=== PATIENT | female | born 1935 | race Caucasian/White ===

== ENCOUNTER 2017-07-11 12:58 | Inpatient (IN) | payer MEDICARE, BC, OTHER ==
[2017-07-11 13:53] LABS: ALT (SGPT) 18 U/L (8-55); AST (SGOT) 22 U/L (5-34); Alkaline Phosphatase 106 U/L (40-150); Anion Gap 18 mmol/L (10-20); BUN (Urea Nitrogen) 23 mg/dL (9.8-20.1); Band 3 % (5-11); Bilirubin, Total 0.6 mg/dL (0.2-1.2); CK (CPK) 32 U/L (29-168); Calc. Creatinine Clearance 0 mL/min (70-130); Calcium 9.1 mg/dL (7.8-10.44); Carbon Dioxide 21 mmol/L (23-31); Chloride 102 mmol/L (98-107); Estimated GFR-MDRD 39; Globulin 4.1 g/dL (2.4-3.5); Hematocrit 37.2 % (36.0-47.0); Mean Platelet Volume 6.4 fL (7.4-10.4); Neutrophil 87 % (42-75); Protein, Total 7.4 g/dL (6.0-8.3); Red Blood Cell (RBC) Count 4.24 mill/uL (4.20-5.40); White Blood Cell (WBC) Count 18.8 thou/uL (4.8-10.8)
[2017-07-11 13:56] LABS: Troponin I Less than 0.010 ng/mL (< 0.028)
--- NOTE | 2017-07-11 14:38 | RAD ---
PORTABLE CHEST: DATE: 07/11/17. PROVIDED CLINICAL HISTORY: Syncope. FINDINGS: Comparison is made with the study dated 06/05/17. Cardiac and mediastinal silhouette is unchanged in appearance. Median sternotomy changes and left subclavian cardiac pacing device are redemonstrated . Left-sided pleural effusion appears stable to slightly more conspicuous as compared with the prio r study. Interval improvement in right basilar pleural parenchymal opacity. No evidence for pneumo thorax. IMPRESSION: Bibasilar pleural parenchymal opacities, appearing probably worsened on the left and improved on the right. POS: OFF
[2017-07-11] MEDS ORDERED: ISOVUE-370 76%-LOCM 1 ML ONE (15:14)
--- NOTE | 2017-07-11 15:28 | CT ---
ABDOMEN CT WITHOUT CONTRAST PELVIC CT WITHOUT CONTRAST: Date: 07/11/17 HISTORY: Dizziness. Weakness. Mid abdominal pain. Shortness of breath. COMPARISON: None TECHNIQUE: Abdomen and pelvic CT performed without contrast. Coronal reformatted images are submitted for inter pretation. FINDINGS: Small to moderate bilateral pleural effusions. Heart size is normal limits. There is moderate perica rdial fluid with a shaggy, irregular border of the pericardium. Correlate for pericarditis. Coronary artery calcifications are identified. Limited evaluation of the solid organs due to lack of IV contrast. Grossly unremarkable liver, splee n, pancreas, and adrenal glands. Surgically absent gallbladder. No mesenteric mass, lymphadenopathy, free air, or free fluid. Bilaterally, no hydronephrosis, nephrolithiasis, or perinephric fat stranding. Bilateral ureters hav e a normal caliber. No hydroureter, periureteral fat stranding, or ureterolithiasis. Visualized alimentary canal is unremarkable. Multiple normal caliber small bowel loops. Ileocecal ju nction is normal. Normal caliber appendix. Scattered fecal material in a nondistended, nondilated co carmel[place]. Extensive diverticulosis, without evidence of diverticulitis. PELVIC CT: No mass, lymphadenopathy, free air, or significant free fluid. Urinary bladder is unremarkable. Uter us is unremarkable, with the exception of a calcified lesion likely representing a uterine leiomyoma at the level of the fundus measuring 1.8 cm. Hypodensities in the sacrum are presumed to be due to Tarlov cysts. IMPRESSION: 1. Bilateral pleural effusions. 2. Pericardial fluid with an irregular appearing pericardium. Correlate for pericarditis. 3. Diverticulosis, without evidence of diverticulitis. 4. No evidence of bowel obstruction. POS: [facility]
[2017-07-11 16:49] LABS: Bilirubin Negative (Negative); Blood, Urine Trace (Negative); Glucose, Urine (Dipstick) Negative (Negative); Ketone, Urine Trace mg/dL (Negative); Nitrite Negative (Negative); Protein, Urine (Dipstick) 30 mg/dL (Neg-Trace); Urobilinogen 0.2 mg/dL (0.2-1.0)
[2017-07-11 16:55] LABS: Lactic Acid - Sepsis 2.6 mmol/L (0.5-2.2)
[2017-07-11 17:12] LABS: Bacteria/HPF 2+ HPF (None Seen); RBC/HPF 0-3 HPF (0-3)
[2017-07-11] MEDS ORDERED: Ondansetron HCl/PF 4 MG/2 ML Vial ONE (17:16)
[2017-07-11] MEDS ORDERED: Acetaminophen 325 MG TAB PO PRN ×2 (19:11→22:03)
[2017-07-11] MEDS ORDERED: Ondansetron ODT 4 MG TAB SL PRN (19:11)
[2017-07-11] MEDS ORDERED: Ondansetron HCl/PF 4 MG/2 ML Vial IVP PRN (19:11)
[2017-07-11] MEDS ORDERED: Dextrose 5 %-0.45 % NaCl 1,000 ML IV SCH (19:15)
[2017-07-11 21:43] VITALS: BMI 17.4
[2017-07-11] MEDS ORDERED: Piperacillin/Tazobactam 3.375 GM in Sodium Chloride 0.9% 100 ML IVPB SCH (23:59)
[2017-07-12] MEDS: Piperacillin/Tazobactam 2.25 GM in Sodium Chloride 0.9% 100 ML IVPB SCH ×4 (00:27→19:15)
--- NOTE | 2017-07-12 00:28 | HP ---
DATE OF ADMISSION: 07/11/2017 CHIEF COMPLAINT: Dizziness and weakness. HISTORY OF PRESENT ILLNESS: Mr. Roper is an 81-year-old female, who is difficult to get a history from. She seems to be very forgetful. Per the chart, she was sent over by her primary care physician, who is Dr. Taylor Escudero for dizzines s, weakness, and shortness of breath. The patient was recently admitted here from 05/31/2017-06/11/2017 for fall, syncope, and symptomatic bradycardia. 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 She underwent a sternotomy incision and open heart surgery f or repair and subsequently, was discharged to rehab on 06/11/2017. The patient states she went to rehab, was there for a little while, but has been home for \\\\"some ti me.\\\\" She is unable to tell me how long she has been home. She has continued to have progressive weakness and feels dizzy when she first gets up in the morning that she describes sensation that she is going to pass out. She denies any fevers or chills, no ch est pain or shortness of breath. No nausea or vomiting. Her sternotomy incision has been without d rainage and her postop pain is improved. On arrival here, she was noted to be hypotensive, tachycardic, elevated white blood cell count with a 3% bandemia and a slight left shift, and a lactic acid of over 2. She was subsequently admitted f or further workup and treatment. She did receive Zosyn and a 1 liter normal saline in the ER, which was not quite at 30 mL per kilo. Since arrival on the floor and prior to admission, she received another 500 mL, which did give her r ight at 30 mL per kilo, is continuing on IV fluids at present 200 mL per hour. She denies any curre nt complaints or any further problems. PAST MEDICAL HISTORY: 1. Hypothyroidism. 2. Hyperlipidemia. 3. GERD. 4. History of intracranial hemorrhage. 5. CKD stage 2. 6. Symptomatic bradycardia. 7. Status post dual-chamber pacemaker placement. 8. Recent atrial perforation with repair. PAST SURGICAL HISTORY: 1. Right knee surgery. 2. Colonoscopy. 3. Left breast biopsy. 4. Cholecystectomy. 5. Sternotomy with right atrial repair on 06/2017. HOME MEDICATIONS: 1. Crestor 5 mg p.o. at bedtime. 2. Levothyroxine 50 mcg daily. 3. Docusate 100 mg b.i.d. 4. Tylenol 650 mg p.r.n. pain. ALLERGIES: NKDA. FAMILY HISTORY: Negative for clotting or bleeding disorder, no immune dysfunction. SOCIAL HISTORY: Negative for habits x3. She is . States she lives alone at home. REVIEW OF SYSTEMS: A 10-point review of systems was performed and negative for all other systems ex cept as stated per HPI. I do question stability given her forgetfulness. PHYSICAL EXAMINATION: VITAL SIGNS: Temperature 97.3, pulse 95, blood pressure 88/64 on transfer from the ER, she is curre ntly 103/65 up on the floor. Her pulse is still 95, respiratory rate 16, satting 94% on 4 liters. GENERAL: She is awake. She is alert. She is oriented x3. She is a thin, frail-looking elderly wh ite female, appears to be in no distress. HEENT: Normocephalic, atraumatic. Pupils equal, round, reactive to light bilaterally, mucous membr anes are moist without visible lesions or thrush. NECK: Supple. Showed no lymphadenopathy, no JVD, no thyromegaly. She has good range of motion. N ormal carotid upstrokes. There are no bruits. LUNGS: Clear without wheezes, rales, or rhonchi. She has good air movement and symmetrical chest e xcursion. CARDIOVASCULAR: She has normal S1 and S2. They are distant. She has no audible rub. I cannot tc reciate any murmurs. Sternotomy incision is well healed. There is no erythema, no fluctuance. A p acemaker incision to the left chest is well healed as well. There is no tenderness and no fluid in the pocket. ABDOMEN: Soft, is nontender, nondistended, and scaphoid. She has normoactive bowel sounds present in all 4 quadrants. There is no rebound, rigidity, or guarding. EXTREMITIES: Show no cyanosis, no clubbing, no edema. She has 1+ peripheral pulses in both the ignacio salis pedis and posterior tibial pulses arteries. She has normal capillary refill. SKIN: Warm, moist, and well perfused. She has no rashes or lesions otherwise. NEUROLOGIC: Cranial nerves II through XII are grossly intact without any focal neurologic deficits. MUSCULOSKELETAL: Normal to inspection. She has no inflamed joints. No palpable joint effusions. LABORATORY DATA: Her baseline creatinine is somewhere around 0.8, she is currently at 1.31. Liver functions are fairly normal. A white blood cell count 18.8 with a left shift, 87% granulocyte s, 3% bands, hemoglobin 12.7, hematocrit 37.2, platelet count 434,000. RADIOGRAPHIC STUDIES: A CT scan of the abdomen and pelvis showed a pericardial fluid, abnormal appe aring pericardium, diverticulosis without diverticulitis, and moderate bilateral pleural effusions. ASSESSMENT AND PLAN: 1. Severe sepsis. I do not believe she has septic shock. After getting 1.5 liters of fluid which is 30 mL per kilo, her blood pressure did appear to be more normal. We will get orthostatics on her tonight and in the morning. We will continue fluids at 150 mL per hour overnight. She does have e levated white count with left shift, lactic acid 2.6 on presentation down to 1.8 prior to transfer, tachycardia at 95 and hypotension. Given her recent procedure, she is certainly at risk for hospita l-acquired infection. I will continue to cover with antibiotic. She did get Zosyn in the emergency room. We will continue her on vancomycin and Zosyn as we have no clear source. A CT scan did demo nstrate a pericardial fluid and moderate bilateral pleural effusions. There is no evidence of pneum onia. We will repeat a CT scan of the chest. Her D-dimer was elevated at over 4, but given her rec ent surgery that is not surprising at all. She has no other signs or symptoms of pulmonary embolus at this time, so we will continue her on deep venous thrombosis prophylaxis. We will follow up on t he findings of her CT scan of the chest. 2. History of hypothyroidism. We will continue replacement. 3. Hyperlipidemia, on Crestor. 4. Gastroesophageal reflux disease. We will continue her on Pepcid b.i.d. here. 5. Chronic kidney disease, stage 2. 6. Acute kidney injury. We will repeat labs in the morning.
[2017-07-12] MEDS: Sodium Chloride 0.9% 1,000 ML IV SCH ×4 (00:31→13:27)
[2017-07-12] MEDS ORDERED: Levothyroxine Sodium 50 MCG TAB PO SCH (06:00)
[2017-07-12] MEDS ORDERED: Diabetic Tussin 200 MG/10 ML UDCUP PO PRN (07:19)
[2017-07-12] MEDS ORDERED: Zolpidem Tartrate 5 MG TAB PO PRN (07:19)
[2017-07-12] MEDS ORDERED: Benzonatate 100 MG CAP PO PRN (07:19)
[2017-07-12] MEDS ORDERED: Loperamide HCl 2 MG CAP PO PRN (07:19)
[2017-07-12] MEDS ORDERED: Chloraseptic Spray 180 ml Bottle PO PRN (07:19)
[2017-07-12] MEDS ORDERED: Ondansetron HCl/PF 4 MG/2 ML Vial IVP PRN (07:19)
[2017-07-12] MEDS ORDERED: Milk Of Magnesia 30 ML UDCUP PO PRN (07:19)
[2017-07-12] MEDS ORDERED: Docusate 100 MG CAP PO PRN (07:19)
[2017-07-12] MEDS ORDERED: Loratadine 10 MG TAB PO PRN (07:19)
[2017-07-12] MEDS ORDERED: Sodium Chloride 0.65% Nasal 44 ML BOT EA NARE PRN (07:19)
[2017-07-12] MEDS ORDERED: Mag-Al 1200 mg/1200 mg/30 ML UDCUP PO PRN (07:19)
[2017-07-12] MEDS ORDERED: Artificial Tears 18 DROP/0.9 ML EA EYE PRN (07:19)
[2017-07-12] MEDS ORDERED: Eucerin (Mineral Oil/Petrolatum,White) 30 gm Jar TOP PRN (07:19)
[2017-07-12] MEDS ORDERED: Ondansetron ODT 4 MG TAB PO PRN (07:19)
[2017-07-12] MEDS ORDERED: HYDROcodone/Acetaminophen 5/325 mg Tablet PO PRN (07:19)
[2017-07-12] MEDS: Levothyroxine Sodium 50 MCG TAB PO SCH (07:54)
[2017-07-12] MEDS: Famotidine 20 MG TAB PO SCH ×2 (07:54→21:12)
--- NOTE | 2017-07-12 08:09 | CT ---
PRELIMINARY REPORT/[facility]/EMERGENCY AFTER HOURS PROCEDURE: EXAM: CT Angiography Chest With Intravenous Contrast CLINICAL HISTORY: 81 years old, female; Elevated d-dimer 4.32; C/O cough, denies chest pain or SOB. recent ra perforat ion and repair; Pericardial fluid. denies chest pain or SOB TECHNIQUE: Axial computed tomographic angiography images of the chest with intravenous contrast using pulmonary embolism protocol. Coronal reformatted images were created and reviewed. Oblique reformatted images were created and reviewed. COMPARISON: No relevant prior studies available. FINDINGS: Pulmonary arteries: No evidence of pulmonary embolism. Aorta: No acute findings. No thoracic aortic aneurysm. Lungs: Near-total consolidation / atelectasis of the left lower lobe. A few small patches of infiltr ate within the superior right upper lobe. Pleural space: Small right pleural fluid collection. Moderate left pleural fluid collection. No pneu mothorax. Heart: Small pericardial effusion. Coronary artery calcification. No evidence of RV dysfunction. Bones/joints: Prior median sternotomy. No acute fracture. No dislocation. Soft tissues: Unremarkable. Lymph nodes: Unremarkable. No enlarged lymph nodes. Tubes, lines and devices: Tip of unipolar pacemaker lead within the right ventricle. Other findings: Evidence of old granulomatous disease. IMPRESSION: 1. No evidence of pulmonary embolism. 2. Small pericardial effusion. 3. Small right pleural fluid collection. Moderate left pleural fluid collection. 4. Near-total consolidation / atelectasis of the left lower lobe. 5. A few small patches of infiltrate within the superior right upper lobe. Thank you for allowing us to participate in the care of your patient. Dictated and Authenticated by: Cisco Valerio MD 07/12/2017 12:42 AM Central Time ([place] \T\ [place]) FINAL REPORT CONTRAST ENHANCED CTA CHEST: Date: 07/11/17 HISTORY: 81-year-old female with history of elevated D-Dimer complaining of cough. FINDINGS: Contrast enhanced CTA of the chest is performed. 2D and 3D reconstructed images performed on an [employer] 3D workstation. Images demonstrate sternotomy wires seen. Intracardiac pacing device seen. Bilateral pleural effusio ns seen. Pericardial effusion is seen. No evidence of filling defects seen in the pulmonary arteries to suggest pulmonary emboli. IMPRESSION: No evidence of pulmonary emboli seen. I agree with the preliminary report given by Ad. POS: [facility]
[2017-07-12 08:50] LABS: Anion Gap 11 mmol/L (10-20); BUN (Urea Nitrogen) 15 mg/dL (9.8-20.1); Calc. Creatinine Clearance 42 mL/min (70-130); Calcium 8.3 mg/dL (7.8-10.44); Carbon Dioxide 23 mmol/L (23-31); Chloride 108 mmol/L (98-107); Estimated GFR-MDRD 66
[2017-07-12] MEDS ORDERED: Docusate 100 MG CAP PO SCH (09:00)
[2017-07-12] MEDS ORDERED: FLU VACC TS2017-18 (>65YR) 0.5 ML SYRINGE IM ONE (09:00)
[2017-07-12 09:33] LABS: #Eosinphils 0.1 thou/uL (0.0-0.7); #Monocytes 0.8 thou/uL (0.11-0.59); #Neutrophils 11.3 thou/uL (1.40-6.50); %Basophils 0.2 % (0.0-1.0); %Eosinophils 0.7 % (0.0-10.0); %Lymphocytes 7.7 % (21.0-51.0); %Monocytes 5.7 % (0.0-10.0); Hematocrit 36.6 % (36.0-47.0); Mean Platelet Volume 7.1 fL (7.4-10.4); Red Blood Cell (RBC) Count 3.85 mill/uL (4.20-5.40); White Blood Cell (WBC) Count 13.2 thou/uL (4.8-10.8)
--- NOTE | 2017-07-12 13:03 | PDOC.PN ---
- Subjective Encounter Start Date: 07/12/17 Encounter Start Time: 07:40 -: old records requested/rev Patient seen and examined. No new complaints. No overnight events - Objective MAR Reviewed: Yes Vital Signs & Weight: Vital Signs (12 hours) Temp Pulse Resp BP Pulse Ox 07/12/17 11:23 98.8 F 96 18 117/79 98 07/12/17 08:00 97.6 F 96 16 95/64 98 07/12/17 05:52 97.4 F L 97 16 100/66 94 L Weight Admit Weight 108 lb 0.48 oz Weight 108 lb 0.48 oz I&O: 07/11/17 07/12/17 07/13/17 06:59 06:59 06:59 Intake Total 180 Balance 180 Result Diagrams: 07/12/17 09:11 07/12/17 08:19 Radiology Reviewed by me: Yes (CT abdomen, CTA chest) Phys Exam - Physical Examination Constitutional: NAD HEENT: PERRLA, moist MMs, sclera anicteric Neck: no JVD, supple Respiratory: no wheezing, no rales, no rhonchi Cardiovascular: RRR, no significant murmur, no rub Gastrointestinal: soft, non-tender, no distention, positive bowel sounds Musculoskeletal: no edema, pulses present Neurological: non-focal, normal sensation, moves all 4 limbs Lymphatic: no nodes Psychiatric: normal affect, A&O x 3 Skin: no rash, normal turgor Dx/Plan (1) Community acquired bacterial pneumonia Code(s): J15.9 - UNSPECIFIED BACTERIAL PNEUMONIA Status: Acute (2) Acute kidney failure Status: Acute (3) Bilateral pleural effusion Code(s): J90 - PLEURAL EFFUSION, NOT ELSEWHERE CLASSIFIED Status: Acute (4) Dehydration Code(s): E86.0 - DEHYDRATION Status: Acute (5) Lactic acidosis Code(s): E87.2 - ACIDOSIS Status: Acute (6) Pericardial effusion Code(s): I31.3 - PERICARDIAL EFFUSION (NONINFLAMMATORY) Status: Acute Comment: s/p pericardial window (7) Protein-calorie malnutrition, moderate Code(s): E44.0 - MODERATE PROTEIN-CALORIE MALNUTRITION Status: Acute (8) Sepsis with acute organ dysfunction Code(s): A41.9 - SEPSIS, UNSPECIFIED ORGANISM; R65.20 - SEVERE SEPSIS WITHOUT SEPTIC SHOCK Status: Acute (9) Diverticulosis of colon Code(s): K57.30 - DVRTCLOS OF LG INT W/O PERFORATION OR ABSCESS W/O BLEEDING Status: Chronic (10) GERD (gastroesophageal reflux disease) Code(s): K21.9 - GASTRO-ESOPHAGEAL REFLUX DISEASE WITHOUT ESOPHAGITIS Status: Chronic (11) Hypothyroidism Code(s): E03.9 - HYPOTHYROIDISM, UNSPECIFIED Status: Chronic - Plan cont current plan of care, continue antibiotics * continue vancomycin and zosyn * follow on culture * medication reviewed as below * symptomatic treatment * start PT * nutritional support. * continue IVF * repeat labs tomorrow Review of Systems - Review of Systems Constitutional: Weakness. negative: Fever, Chills, Sweats, Malaise, Other ENT: negative: Ear Pain, Ear Discharge, Nose Pain, Nose Discharge, Nose Congestion, Mouth Pain, Mouth Swelling, Throat Pain, Throat Swelling, Other Respiratory: Cough, Shortness of Breath. negative: Dry, Hemoptysis, SOB with Excertion, Pleuritic Pain, Sputum, Wheezing Cardiovascular: negative: Chest Pain, Palpitations, Orthopnea, Paroxysmal Noc. Dyspnea, Edema, Light Headedness, Other Gastrointestinal: negative: Nausea, Vomiting, Abdominal Pain, Diarrhea, Constipation, Melena, Hematochezia, Other Genitourinary: negative: Dysuria, Frequency, Incontinence, Hematuria, Retention , Other Musculoskeletal: negative: Neck Pain, Shoulder Pain, Arm Pain, Back Pain, Hand Pain, Leg Pain, Foot Pain, Other - Medications/Allergies Allergies/Adverse Reactions: Allergies Allergy/AdvReac Type Severity Reaction Status Date / Time No Known Drug Allergies Allergy Verified 06/01/17 01:47 Medications: Current Medications Acetaminophen (Tylenol) 650 mg PO Q4H PRN PRN Reason: Headache/Fever or Mild Pain Hydrocodone Bitart/Acetaminophen ([place] 5/325) 1 tab PO Q4H PRN PRN Reason: Moderate Pain (4-6) Al Hydroxide/Mg Hydroxide (Maalox) 15 ml PO Q4H PRN PRN Reason: Heartburn or Indigestion Artificial Tears (Tears Naturale) 0 drop EA EYE PRN PRN PRN Reason: Dry Eyes Benzonatate (Tessalon) 100 mg PO Q4H PRN PRN Reason: Cough Docusate Sodium (Colace) 100 mg PO BIDPRN PRN PRN Reason: Constipation Famotidine (Pepcid) 20 mg PO BID [facility] Last Admin: 07/12/17 07:54 Dose: 20 mg Guaifenesin (Robitussin Sf) 200 mg PO Q4H PRN PRN Reason: Cough Hydralazine HCl (Apresoline) 10 mg SLOW IVP Q4H PRN PRN Reason: Systolic BP > 180 Vancomycin HCl 750 mg/ Sodium (Chloride) 250 mls @ 250 mls/hr IVPB Q24HR [facility] Piperacillin Sod/Tazobactam (Sod 2.25 gm/ Sodium Chloride) 100 mls @ 200 mls/ hr IVPB Q6HR [facility] Last Admin: 07/12/17 11:26 Dose: 100 mls Sodium Chloride (Normal Saline 0.9%) 1,000 mls @ 75 mls/hr IV .[id number] [facility] Last Admin: 07/12/17 07:54 Dose: Not Given Levothyroxine Sodium (Synthroid) 50 mcg PO DAILY [facility] Last Admin: 07/12/17 07:54 Dose: 50 mcg Loperamide HCl (Imodium) 2 mg PO PRN PRN PRN Reason: Diarrhea/Loose Stools Loratadine (Claritin) 10 mg PO DAILYPRN PRN PRN Reason: Sinus Symptoms Magnesium Hydroxide (Milk Of Magnesium) 30 ml PO DAILYPRN PRN PRN Reason: Constipation Mineral Oil/White Petrolatum (Eucerin Cream) 0 gm TOP BIDPRN PRN PRN Reason: Dry Skin Miscellaneous Medication (Pharmacy To Dose) 1 each IVPB PRN PRN PRN Reason: Pharmacy to dose Ondansetron HCl (Zofran Odt) 4 mg PO Q6H PRN PRN Reason: Nausea/Vomiting Ondansetron HCl (Zofran) 4 mg IVP Q6H PRN PRN Reason: Nausea/Vomiting Phenol (Chloraseptic [place] 180 Ml Bot) 0 ml PO PRN PRN PRN Reason: Sore Throat Rosuvastatin Calcium (Crestor) 5 mg PO HS [facility] Sodium Chloride (Flush - Normal Saline) 10 ml IVF Q12HR [facility] Last Admin: 07/12/17 07:55 Dose: Not Given Sodium Chloride (Flush - Normal Saline) 10 ml IVF PRN PRN PRN Reason: Saline Flush Sodium Chloride ([place] Nasal [place] 0.65%) 0 ml EA NARE QIDPRN PRN PRN Reason: Nasal Congestion Zolpidem Tartrate (Ambien) 5 mg PO HSPRN PRN PRN Reason: Insomnia
--- NOTE | 2017-07-12 13:12 | PQF ---
Date: 07-12-17 ATTN: DR. YOUNG VALLEJO Please exercise your independent, professional judgment in responding to the clarification form. Clinical indicators are provided on the bottom of this form for your review Please check appropriate box(s): [ x ] Protein Calorie Malnutrition: [ ] Mild [ x ] Moderate [ ] Severe [ ] Cachexia [ ] Other diagnosis [ ] Unable to determine In addition, please specify: Present on Admission (POA): [ x ] Yes [ ] No [ ] Unable to determine CLINICAL INDICATORS - SIGNS / SYMPTOMS / LABS BMI: 17 ER DOCUMENTATION: WEAKNESS, NOT EATING OR DRINKING MUCH NOW, REPORTS WEIGHT LOSS. LOST 20 POUNDS OVER THE PAST 2 MONTHS. H&P: SHE IS A THIN, FRAIL LOOKING ELDERLY WHITE FEMALE RISK FACTORS: ER DOCUMENTATION: WEAKNESS, NOT EATING OR DRINKING MUCH NOW , REPORTS WEIGHT LOSS. LOST 20 POUNDS OVER THE PAST 2 MONTHS. TREATMENT: DIETARY CONSULT 07-12-17: PT STATES SHE USUALLY HAS A LOW APPETITE , C/O COUGHING STARTING 3 WEEKS AGO THAT MADE IT DIFFICULT FOR HER TO EAT, NUTRITIONAL PRESCRIPTION (This form is maintained as a part of the permanent medical record) 2014 [employer]. All Rights Reserved ANTONIETA [email or web address] Office: [phone] [facility] [facility] SHOREDigna
[2017-07-12] MEDS: Vancomycin HCl 750 MG in Sodium Chloride 0.9% 250 ML 250 ML IVPB SCH (17:37)
[2017-07-13] MEDS: Piperacillin/Tazobactam 2.25 GM in Sodium Chloride 0.9% 100 ML IVPB SCH ×5 (02:05→23:48)
[2017-07-13 05:10] LABS: ALT (SGPT) 14 U/L (8-55); Alkaline Phosphatase 92 U/L (40-150); BUN (Urea Nitrogen) 10 mg/dL (9.8-20.1); Calc. Creatinine Clearance 45 mL/min (70-130); Estimated GFR-MDRD 72; Globulin 3.9 g/dL (2.4-3.5)
[2017-07-13 05:14] LABS: AST (SGOT) 34 U/L (5-34); Anion Gap 12 mmol/L (10-20); Bilirubin, Total 0.5 mg/dL (0.2-1.2); Calcium 8.1 mg/dL (7.8-10.44); Carbon Dioxide 18 mmol/L (23-31); Chloride 112 mmol/L (98-107); Protein, Total Greater than 12.0 g/dL (6.0-8.3)
[2017-07-13] MEDS: Levothyroxine Sodium 50 MCG TAB PO SCH (08:30)
[2017-07-13] MEDS: Famotidine 20 MG TAB PO SCH ×2 (08:30→21:28)
[2017-07-13] MEDS: Sodium Chloride 0.9% 1,000 ML IV SCH (11:47)
--- NOTE | 2017-07-13 12:04 | PDOC.PN ---
- Subjective Encounter Start Date: 07/13/17 Encounter Start Time: 08:20 Subjective: mild sob, no chest pain - Objective MAR Reviewed: Yes Vital Signs & Weight: Vital Signs (12 hours) Temp Pulse Resp BP BP Pulse Ox 07/13/17 08:00 97.7 F 91 18 128/85 97 07/13/17 07:46 95 16 97 07/13/17 05:45 97.6 F 96 16 130/85 98 Weight Admit Weight 108 lb 0.48 oz Weight 108 lb 0.48 oz I&O: 07/12/17 07/13/17 07/14/17 06:59 06:59 06:59 Intake Total 2865 Output Total 1 Balance 2864 Result Diagrams: 07/12/17 09:11 07/13/17 04:06 Phys Exam - Physical Examination HEENT: PERRLA, moist MMs Neck: no JVD, supple Respiratory: no wheezing, no rales Cardiovascular: RRR, no significant murmur Gastrointestinal: soft, non-tender, positive bowel sounds Musculoskeletal: pulses present, edema present Neurological: non-focal, moves all 4 limbs Psychiatric: A&O x 3 Dx/Plan (1) Sepsis Code(s): A41.9 - SEPSIS, UNSPECIFIED ORGANISM Status: Acute Qualifiers: Sepsis type: sepsis due to unspecified organism Qualified Code(s): A41.9 - Sepsis, unspecified organism (2) Bilateral pleural effusion Code(s): J90 - PLEURAL EFFUSION, NOT ELSEWHERE CLASSIFIED Status: Acute (3) Protein-calorie malnutrition, moderate Code(s): E44.0 - MODERATE PROTEIN-CALORIE MALNUTRITION Status: Acute (4) GERD (gastroesophageal reflux disease) Code(s): K21.9 - GASTRO-ESOPHAGEAL REFLUX DISEASE WITHOUT ESOPHAGITIS Status: Chronic (5) Hypothyroidism Code(s): E03.9 - HYPOTHYROIDISM, UNSPECIFIED Status: Chronic (6) Pacemaker Code(s): Z95.0 - PRESENCE OF CARDIAC PACEMAKER Status: Acute - Plan has left LL atelectasis with effusion -: low albumin -: consult , ?thoracentesis left -: i.spirometry -: wbc down to 13 from 18, is on vanc and zosyn * . Review of Systems - Medications/Allergies Allergies/Adverse Reactions: Allergies Allergy/AdvReac Type Severity Reaction Status Date / Time No Known Drug Allergies Allergy Verified 06/01/17 01:47 Medications: Current Medications Acetaminophen (Tylenol) 650 mg PO Q4H PRN PRN Reason: Headache/Fever or Mild Pain Hydrocodone Bitart/Acetaminophen ([place] 5/325) 1 tab PO Q4H PRN PRN Reason: Moderate Pain (4-6) Al Hydroxide/Mg Hydroxide (Maalox) 15 ml PO Q4H PRN PRN Reason: Heartburn or Indigestion Albuterol/Ipratropium (Duoneb) 3 ml NEB [id number] [facility] Last Admin: 07/13/17 07:46 Dose: 3 ml Artificial Tears (Tears Naturale) 0 drop EA EYE PRN PRN PRN Reason: Dry Eyes Benzonatate (Tessalon) 100 mg PO Q4H PRN PRN Reason: Cough Docusate Sodium (Colace) 100 mg PO BIDPRN PRN PRN Reason: Constipation Famotidine (Pepcid) 20 mg PO BID [facility] Last Admin: 07/13/17 08:30 Dose: 20 mg Guaifenesin (Robitussin Sf) 200 mg PO Q4H PRN PRN Reason: Cough Hydralazine HCl (Apresoline) 10 mg SLOW IVP Q4H PRN PRN Reason: Systolic BP > 180 Vancomycin HCl 750 mg/ Sodium (Chloride) 250 mls @ 250 mls/hr IVPB Q24HR [facility] Last Admin: 07/12/17 17:37 Dose: 250 mls Piperacillin Sod/Tazobactam (Sod 2.25 gm/ Sodium Chloride) 100 mls @ 200 mls/ hr IVPB Q6HR [facility] Last Admin: 07/13/17 11:48 Dose: 100 mls Sodium Chloride (Normal Saline 0.9%) 1,000 mls @ 75 mls/hr IV .[id number] [facility] Last Admin: 07/13/17 11:47 Dose: 1,000 mls Levothyroxine Sodium (Synthroid) 50 mcg PO DAILY [facility] Last Admin: 07/13/17 08:30 Dose: 50 mcg Loperamide HCl (Imodium) 2 mg PO PRN PRN PRN Reason: Diarrhea/Loose Stools Loratadine (Claritin) 10 mg PO DAILYPRN PRN PRN Reason: Sinus Symptoms Magnesium Hydroxide (Milk Of Magnesium) 30 ml PO DAILYPRN PRN PRN Reason: Constipation Mineral Oil/White Petrolatum (Eucerin Cream) 0 gm TOP BIDPRN PRN PRN Reason: Dry Skin Miscellaneous Medication (Pharmacy To Dose) 1 each IVPB PRN PRN PRN Reason: Pharmacy to dose Ondansetron HCl (Zofran Odt) 4 mg PO Q6H PRN PRN Reason: Nausea/Vomiting Ondansetron HCl (Zofran) 4 mg IVP Q6H PRN PRN Reason: Nausea/Vomiting Phenol (Chloraseptic [place] 180 Ml Bot) 0 ml PO PRN PRN PRN Reason: Sore Throat Rosuvastatin Calcium (Crestor) 5 mg PO HS [facility] Last Admin: 07/12/17 21:12 Dose: 5 mg Sodium Chloride (Flush - Normal Saline) 10 ml IVF Q12HR [facility] Last Admin: 07/13/17 08:30 Dose: Not Given Sodium Chloride (Flush - Normal Saline) 10 ml IVF PRN PRN PRN Reason: Saline Flush Sodium Chloride ([place] Nasal [place] 0.65%) 0 ml EA NARE QIDPRN PRN PRN Reason: Nasal Congestion Zolpidem Tartrate (Ambien) 5 mg PO HSPRN PRN PRN Reason: Insomnia
[2017-07-13 15:31] LABS: BF Reference Range Comment Note:
[2017-07-13] MEDS ORDERED: methylPREDNISolone Sod Succ/PF 125 MG/2 ML VIAL IVP SCH (15:45)
[2017-07-13 15:57] LABS: BF Color Yellow
[2017-07-13] MEDS: Vancomycin HCl 750 MG in Sodium Chloride 0.9% 250 ML 250 ML IVPB SCH (16:23)
[2017-07-13 16:28] LABS: Vancomycin, Trough 7.1 ug/mL
[2017-07-13 16:43] LABS: Number Cells Counted-Fluids 100
[2017-07-13] MEDS ORDERED: Vancomycin HCl 750 MG in Sodium Chloride 0.9% 250 ML 250 ML IVPB SCH (17:30)
--- NOTE | 2017-07-13 18:45 | OP ---
PROCEDURE: Thoracentesis. Ms. Roper was positioned for thoracentesis. Consent was obtained from the patient prior to procedure. Risks of bleeding, infection, lung collapse were explained. Left posterior hemithorax was percussed to a dull area, this was cleansed with chlorhexidine. A 10 mL of 1% lidocaine was used to anesthetize the pleura and the skin. A small incision was made with a #11 blade. An 8 Welsh catheter was inserted into the pleural space and one liter of clear yellow pleural fluid was easily evacuated into a vacuum bottle. Fluid was sent for Gram stain and culture, LDH, protein, glucose, amylase and cell count, as well as bottle for cytology. The patient tolerated the procedure well. No air was aspirated, so no post-procedure chest radiograph was done. SCOTT
--- NOTE | 2017-07-13 19:14 | CON ---
DATE OF CONSULTATION: 07/13/2017 Ms. Roper is an 81-year-old female who presented to the emergency department on 07/11/2017 on the a fternoon. She has presented with complaints of weakness. She had multiple imaging studies done in the emergency department. Chest x-ray showed large left effusion. Chest CT showed bilateral effusions, left greater than. She had an abdomen and pelvis CT for some reason that showed an irregular pericardium which I suspec t is related to her surgery for the perforation related to pacemaker. Diverticulosis was seen. According to her a very good friend, Ms. Roper went to rehab after recently having a pacemaker plac ed with complications of bleeding into the pericardium requiring sternotomy. She recovered to the point where she was ambulating fairly well at rehab and then has not really don e anything since she got home other than move about the house. She presented with weakness and shor tness of breath. I was consulted today for pleural effusion that was identified and a couple of day s ago on CT. PAST MEDICAL HISTORY: 1. Remarkable for hypothyroidism. 2. Lipid disorder. 3. Reflux disease. 4. History of intracranial hemorrhage. 5. Chronic kidney disease. 6. Recent pacemaker implantation with complications as noted above. 7. History of right knee surgery, colonoscopy, breast biopsy, cholecystectomy: Prior to admission, she was on Crestor, Synthroid, and stool softener. FAMILY HISTORY: Negative for lung disease. REVIEW OF SYSTEMS: Otherwise negative. PHYSICAL EXAMINATION: GENERAL: She is drinking Ensure at home. VITAL SIGNS: She is afebrile, heart rate is 91, respiratory rate is 18, oximetry is 97 on 2 liters. HEENT: Pupils were equal. Sclerae is anicteric. NECK: Supple. She has lost considerable amount of weight by appearance, her ribs are visible. She has decreased breath sounds, more so on the left with dullness to percussion. HEART: Regular rhythm. S1 and S2 are slightly distant. ABDOMEN: Soft and nontender. EXTREMITIES: Without asymmetry. LABORATORY DATA: White count 13.6, hemoglobin 11.6, platelets 420. Sodium 138, potassium 4.3, chlo ride 112, bicarbonate 18, BUN 10, creatinine 0.7, albumin is 2.3, protein is greater than 12. Corti beverly 16. IMPRESSION: 1. Left effusion, ? post-pericardotomy effusion. I think this is the most likely diagnosis. I hav e recommended a thoracentesis to rule out an infectious process. I doubt this is a malignant proces s. 2. Mild hyperchloremic acidosis. 3. Extreme deconditioning. 4. Total protein of greater than 12 on admission with a normal serum calcium, serum protein electro phoresis needs to be done. I will give her 1 dose of steroids, start her on a low dose of prednison e after thoracentesis. I will be happy to follow with the other physicians caring for her.
[2017-07-14] MEDS: Sodium Chloride 0.9% 1,000 ML IV SCH (03:23)
[2017-07-14] MEDS: Piperacillin/Tazobactam 2.25 GM in Sodium Chloride 0.9% 100 ML IVPB SCH ×2 (06:36→11:06)
[2017-07-14 06:54] LABS: #Basophils 0.1 thou/uL (0.0-0.2); #Lymphocytes 0.5 thou/uL (1.20-3.40); #Monocytes 0.1 thou/uL (0.11-0.59); #Neutrophils 6.9 thou/uL (1.40-6.50); %Basophils 1.3 % (0.0-1.0); %Lymphocytes 6.3 % (21.0-51.0); %Monocytes 1.7 % (0.0-10.0); Hematocrit 32.4 % (36.0-47.0); Mean Platelet Volume 7.3 fL (7.4-10.4); Red Blood Cell (RBC) Count 3.42 mill/uL (4.20-5.40); White Blood Cell (WBC) Count 7.7 thou/uL (4.8-10.8)
[2017-07-14 07:18] LABS: Anion Gap 11 mmol/L (10-20); BUN (Urea Nitrogen) 12 mg/dL (9.8-20.1); Calc. Creatinine Clearance 44 mL/min (70-130); Calcium 8.3 mg/dL (7.8-10.44); Carbon Dioxide 24 mmol/L (23-31); Chloride 112 mmol/L (98-107); Estimated GFR-MDRD 70
[2017-07-14] MEDS: Famotidine 20 MG TAB PO SCH ×2 (08:10→21:30)
[2017-07-14] MEDS: predniSONE 20 MG TAB PO SCH (08:10)
[2017-07-14] MEDS: Levothyroxine Sodium 50 MCG TAB PO SCH (08:10)
--- NOTE | 2017-07-14 12:30 | PDOC.PN ---
- Subjective Encounter Start Date: 07/14/17 Encounter Start Time: 09:15 Subjective: breathing better, no sob -: had diarrhea multiple times last night -: no blood or mucus in stool, is kind of upset that she had to go many times - Objective MAR Reviewed: Yes Vital Signs & Weight: Vital Signs (12 hours) Temp Pulse Resp BP BP Pulse Ox 07/14/17 08:00 97.2 F L 98 18 105/68 90 L 07/14/17 06:57 94 15 95 07/14/17 04:00 97.8 F 98 20 95/57 L 93 L Weight Admit Weight 108 lb 0.48 oz Weight 108 lb 0.48 oz I&O: 07/13/17 07/14/17 07/15/17 06:59 06:59 06:59 Intake Total 2865 2500 Output Total 1 500 Balance 2864 1999 Result Diagrams: 07/14/17 06:42 07/14/17 06:42 Phys Exam - Physical Examination HEENT: PERRLA, moist MMs Neck: no JVD, supple Respiratory: no wheezing, no rales Cardiovascular: RRR, no significant murmur Gastrointestinal: soft, non-tender, positive bowel sounds Musculoskeletal: pulses present, edema present Neurological: non-focal, moves all 4 limbs Psychiatric: A&O x 3 Dx/Plan (1) Sepsis Code(s): A41.9 - SEPSIS, UNSPECIFIED ORGANISM Status: Acute Qualifiers: Sepsis type: sepsis due to unspecified organism Qualified Code(s): A41.9 - Sepsis, unspecified organism (2) Bilateral pleural effusion Code(s): J90 - PLEURAL EFFUSION, NOT ELSEWHERE CLASSIFIED Status: Acute Comment: s/p left thoracentesis with removal of around 1 ltr 07/13/2017 (3) Protein-calorie malnutrition, moderate Code(s): E44.0 - MODERATE PROTEIN-CALORIE MALNUTRITION Status: Acute (4) GERD (gastroesophageal reflux disease) Code(s): K21.9 - GASTRO-ESOPHAGEAL REFLUX DISEASE WITHOUT ESOPHAGITIS Status: Chronic (5) Hypothyroidism Code(s): E03.9 - HYPOTHYROIDISM, UNSPECIFIED Status: Chronic (6) Pacemaker Code(s): Z95.0 - PRESENCE OF CARDIAC PACEMAKER Status: Acute - Plan stool studies -: is on vanc and zosyn, will switch to omnicef in view of diarrhea -: wbc down to 7, has a component of margination with poor oral intake -: encourage po intake, dietary consult -: on prednisone 20mg daily * . Review of Systems - Medications/Allergies Allergies/Adverse Reactions: Allergies Allergy/AdvReac Type Severity Reaction Status Date / Time No Known Drug Allergies Allergy Verified 06/01/17 01:47 Medications: Current Medications Acetaminophen (Tylenol) 650 mg PO Q4H PRN PRN Reason: Headache/Fever or Mild Pain Hydrocodone Bitart/Acetaminophen ([place] 5/325) 1 tab PO Q4H PRN PRN Reason: Moderate Pain (4-6) Al Hydroxide/Mg Hydroxide (Maalox) 15 ml PO Q4H PRN PRN Reason: Heartburn or Indigestion Albuterol/Ipratropium (Duoneb) 3 ml NEB [id number] [facility] Last Admin: 07/14/17 06:57 Dose: 3 ml Artificial Tears (Tears Naturale) 0 drop EA EYE PRN PRN PRN Reason: Dry Eyes Benzonatate (Tessalon) 100 mg PO Q4H PRN PRN Reason: Cough Docusate Sodium (Colace) 100 mg PO BIDPRN PRN PRN Reason: Constipation Famotidine (Pepcid) 20 mg PO BID [facility] Last Admin: 07/14/17 08:10 Dose: 20 mg Guaifenesin (Robitussin Sf) 200 mg PO Q4H PRN PRN Reason: Cough Hydralazine HCl (Apresoline) 10 mg SLOW IVP Q4H PRN PRN Reason: Systolic BP > 180 Piperacillin Sod/Tazobactam (Sod 2.25 gm/ Sodium Chloride) 100 mls @ 200 mls/ hr IVPB Q6HR [facility] Last Admin: 07/14/17 11:06 Dose: 100 mls Vancomycin HCl 1.5 gm/ Sodium (Chloride) 300 mls @ 200 mls/hr IVPB 1700 [facility] Levothyroxine Sodium (Synthroid) 50 mcg PO DAILY [facility] Last Admin: 07/14/17 08:10 Dose: 50 mcg Loperamide HCl (Imodium) 2 mg PO PRN PRN PRN Reason: Diarrhea/Loose Stools Loratadine (Claritin) 10 mg PO DAILYPRN PRN PRN Reason: Sinus Symptoms Magnesium Hydroxide (Milk Of Magnesium) 30 ml PO DAILYPRN PRN PRN Reason: Constipation Mineral Oil/White Petrolatum (Eucerin Cream) 0 gm TOP BIDPRN PRN PRN Reason: Dry Skin Miscellaneous Medication (Pharmacy To Dose) 1 each IVPB PRN PRN PRN Reason: Pharmacy to dose Ondansetron HCl (Zofran Odt) 4 mg PO Q6H PRN PRN Reason: Nausea/Vomiting Ondansetron HCl (Zofran) 4 mg IVP Q6H PRN PRN Reason: Nausea/Vomiting Phenol (Chloraseptic [place] 180 Ml Bot) 0 ml PO PRN PRN PRN Reason: Sore Throat Prednisone (Prednisone) 20 mg PO QAM-WM [facility] Last Admin: 07/14/17 08:10 Dose: 20 mg Rosuvastatin Calcium (Crestor) 5 mg PO HS [facility] Last Admin: 07/13/17 21:28 Dose: 5 mg Sodium Chloride (Flush - Normal Saline) 10 ml IVF Q12HR [facility] Last Admin: 07/14/17 08:14 Dose: Not Given Sodium Chloride (Flush - Normal Saline) 10 ml IVF PRN PRN PRN Reason: Saline Flush Sodium Chloride ([place] Nasal [place] 0.65%) 0 ml EA NARE QIDPRN PRN PRN Reason: Nasal Congestion Zolpidem Tartrate (Ambien) 5 mg PO HSPRN PRN PRN Reason: Insomnia
--- NOTE | 2017-07-14 15:33 | PRG ---
DATE OF SERVICE: 07/14/2017 SUBJECTIVE: Ms. Roper has an exudative effusion by protein (4 grams). She says she feels 100% better than she felt yesterday. Had 2060 white cells, 1525 red cells, 60% neutrophils. Cytology is pending. Glucose is 122, LDH is 146. OBJECTIVE: LUNGS: Remarkable for equal breath sounds today. HEART: Regular rhythm. ABDOMEN: Soft. IMPRESSION: 1. Post-pericardiotomy pleural effusion. 2. Status post sternotomy for pericardial tamponade related to pacemaker. PLAN: She received IV steroids and is on prednisone now. She needs physical therapy. I doubt this effusion is peripneumonic. I will continue to follow with the other physicians caring for her.
[2017-07-14] MEDS ORDERED: Vancomycin HCl 1.5 GM in Sodium Chloride 0.9% 250 ML 300 ML IVPB SCH (17:00)
[2017-07-14] MEDS: Cefdinir 300 MG CAP PO SCH (21:30)
[2017-07-15 06:29] LABS: Anion Gap 10 mmol/L (10-20); BUN (Urea Nitrogen) 19 mg/dL (9.8-20.1); Calc. Creatinine Clearance 34 mL/min (70-130); Calcium 8.6 mg/dL (7.8-10.44); Carbon Dioxide 26 mmol/L (23-31); Chloride 111 mmol/L (98-107); Estimated GFR-MDRD 53
[2017-07-15] MEDS: Levothyroxine Sodium 50 MCG TAB PO SCH (07:47)
[2017-07-15] MEDS: Cefdinir 300 MG CAP PO SCH (07:48)
[2017-07-15] MEDS: Famotidine 20 MG TAB PO SCH (07:48)
[2017-07-15] MEDS: predniSONE 20 MG TAB PO SCH (07:48)
--- NOTE | 2017-07-15 11:31 | PRG ---
DATE OF SERVICE: 07/15/2017 SUBJECTIVE: Ms. Roper is doing well. She has no complaints. She is sitting on the side of the be d using her incentive spirometer when I entered the room. OBJECTIVE: LUNGS: Remarkable for decreased breath sounds at her bases. HEART: Regular rhythm. ABDOMEN: Soft. 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 I have recommended that she go ho me on prednisone 20 mg a day. She needs physical therapy aggressively as an outpatient. She should follow up with me in 2 weeks with a chest radiograph. I discussed the above with Dr. Isis baez.
[2017-07-15 12:04] VITALS: BP 136/81; TEMP 97.9
--- NOTE | 2017-07-15 15:43 | PDOC.PN ---
- Subjective Encounter Start Date: 07/15/17 Encounter Start Time: 09:20 Subjective: no sob or diarrhea -: feels better - Objective MAR Reviewed: Yes Vital Signs & Weight: Vital Signs (12 hours) Temp Pulse Resp BP BP Pulse Ox 07/15/17 12:04 97.9 F 60 16 136/81 07/15/17 08:00 97.6 F 89 16 98 07/15/17 07:41 97.6 F 89 16 119/76 98 07/15/17 07:24 97.6 F 89 16 119/76 98 07/15/17 06:08 89 20 97 Weight Admit Weight 108 lb 0.48 oz Weight 108 lb 0.48 oz I&O: 07/14/17 07/15/17 07/16/17 06:59 06:59 06:59 Intake Total 2500 360 Output Total 500 Balance 2000 360 Result Diagrams: 07/14/17 06:42 07/15/17 05:48 Phys Exam - Physical Examination HEENT: PERRLA, moist MMs Neck: no JVD, supple Respiratory: no wheezing, no rales Cardiovascular: RRR, no significant murmur Gastrointestinal: soft, non-tender, no distention, positive bowel sounds Musculoskeletal: pulses present, edema present Neurological: non-focal, moves all 4 limbs Psychiatric: A&O x 3 Dx/Plan (1) Sepsis Code(s): A41.9 - SEPSIS, UNSPECIFIED ORGANISM Status: Resolved Qualifiers: Sepsis type: sepsis due to unspecified organism Qualified Code(s): A41.9 - Sepsis, unspecified organism (2) Bilateral pleural effusion Code(s): J90 - PLEURAL EFFUSION, NOT ELSEWHERE CLASSIFIED Status: Acute Comment: s/p left thoracentesis with removal of around 1 ltr 07/13/2017 (3) Protein-calorie malnutrition, moderate Code(s): E44.0 - MODERATE PROTEIN-CALORIE MALNUTRITION Status: Acute (4) GERD (gastroesophageal reflux disease) Code(s): K21.9 - GASTRO-ESOPHAGEAL REFLUX DISEASE WITHOUT ESOPHAGITIS Status: Chronic (5) Hypothyroidism Code(s): E03.9 - HYPOTHYROIDISM, UNSPECIFIED Status: Chronic (6) Pacemaker Code(s): Z95.0 - PRESENCE OF CARDIAC PACEMAKER Status: Acute - Plan had left lower lobe atelectasis with effusion -: needs pulm rehab, cm to set this up on discharge today -: is at high risk of further deconditioning as she stays alone and has lost m -: -otivation to exercise. -: prednisone for 30 days, d/w , to f/u with him in 2-3 weeks with cxr * .
--- NOTE | 2017-07-15 20:14 | DIS ---
DATE OF ADMISSION: 07/11/2017 DATE OF DISCHARGE: 07/15/2017 DISCHARGE DISPOSITION: To home. PRIMARY DISCHARGE DIAGNOSES: Left pleural effusion with lower lobe atelectasis status post thoracen tesis and removal of 1 liter; sepsis, resolved; moderate protein malnutrition; gastroesophageal refl ux disease; hypothyroidism; recent pacemaker insertion with complications including sternotomy and r epair of right atrial wall. PROCEDURES DONE DURING HOSPITALIZATION: The patient has had CT angio chest done which showed left l ower lobe atelectasis with pleural effusion, no evidence of PE. CT of the abdomen and pelvis done s howed no bowel obstruction or acute abnormalities. Thoracentesis with removal of 1 liter of clear y ellow pleural fluid on the left hemithorax done by Dr. Mcclellan on 07/13/2017. Blood cultures x2 no gr owth. Had a white count of 18 on the day of admission with discharge numbers of 7.7, hemoglobin and hematocrit 10 and 32, platelet count 405, albumin is 2.3. DISCHARGE MEDICATIONS: Prednisone 20 mg daily for another 30 days, levothyroxine 125 mcg p.o. daily , ranitidine 150 mg p.o. at bedtime, and Crestor 5 mg p.o. at bedtime. ALLERGIES: No known drug allergies. DISCHARGE PLAN: Patient to follow up with Dr. Mcclellan in 2 weeks with a follow up chest x-ray to see for resolution of her left lower lobe atelectasis. She also needs follow up with primary care physi josue in 1 week. BRIEF COURSE DURING HOSPITALIZATION: Patient initially got admitted on 07/11/2017 with complaints o f dizziness and weakness. She also had shortness of breath. Initial CT angio chest done showed no PE, but there was moderate pleural effusion with left lower lobe atelectasis. She has had consultat ion with Dr. Mcclellan with removal of nearly a liter of serous fluid. She has ambulated nearly 300 fee t. She apparently has providers come and check on her three times and help her with meals at home. Her albumin levels are very low as well. I have consulted case management for setting up outpatien t pulmonary rehabilitation if possible. She needs to follow up with Dr. Mcclellan in 2 weeks. She is o n prednisone [address] Mcclellan's advice. She is otherwise trying to use the incentive arely meter and is hemodynamically stable. The patient had severe diarrheal episode after placing on IV a ntibiotics and was switched over to Omnicef which has been discontinued at the time of discharge. S he is hemodynamically stable with no fever. Please see a face to face documentation on [facility] for the day of discharge.
[2017-07-18 08:21] LABS: A/G Ratio 0.6 (0.7-1.7); Albumin 2.2 g/dL (2.9-4.4); Alpha 1 0.5 g/dL (0.0-0.4); Gamma 0.9 g/dL (0.4-1.8); Globulin, Total 3.5 g/dL (2.2-3.9); M-Spike Not Observed g/dL (Not Observed)
== END 2017-07-15 12:22 | disposition home health service (06) | DRG 872 ==
LOC: SCSER 12:58 → T4-A 16:47 → CCU 07-15 01:29 → T4-A 07-15 01:33
PROVIDERS: ADMIT Internal Medicine; ATTEND Internal Medicine
PROC: 0W9B3ZZ Drainage of Left Pleural Cavity, Percutaneous Approach (ICD-10-PCS; principal; 2017-07-13)
DX: A41.9 Sepsis, unspecified organism (principal); J90 Pleural effusion, not elsewhere classified; N17.9 Acute kidney failure, unspecified; E44.0 Moderate protein-calorie malnutrition; J98.11 Atelectasis; Z68.1 Body mass index [BMI] 19.9 or less, adult; E87.2 Acidosis; E86.0 Dehydration; R65.20 Severe sepsis without septic shock; K21.9 Gastro-esophageal reflux disease without esophagitis; E03.9 Hypothyroidism, unspecified; Z95.0 Presence of cardiac pacemaker; N18.2 Chronic kidney disease, stage 2 (mild); E78.5 Hyperlipidemia, unspecified; K57.30 Diverticulosis of large intestine without perforation or abscess without bleeding
CPT/HCPCS: 32554; 36415; 71010; 71275; 74176; 80048; 80053; 80202; 81003; 81015; 82150; 82533; 82553; 82945; 83605; 83615; 83880; 84157; 84165; 84484; 85025; 85060; 85379; 87040; 87070; 87205; 88112; 88305; 89051; 93005; 94640; 96361; 96365; 96375; A4216; G8978-GP-CK; G8979-GP-CI; G8987-GO-CJ; G8988-GO-CI; J2405; J2543; J2930; J3370; J7050; J7506; J7620

== ENCOUNTER 2017-08-13 10:50 | Observation (INO) | payer MEDICARE, BC, OTHER ==
[2017-08-13] MEDS ORDERED: Fentanyl 100 MCG/2 ML VIAL ONE (11:07)
--- NOTE | 2017-08-13 11:54 | ULT ---
ABDOMINAL AORTIC ULTRASOUND: History: 81-year-old female with abdominal pain. FINDINGS: Atherosclerotic changes are noted of the aorta. No evidence of abdominal aortic aneurysm. The bifurc ation and proximal iliac arteries are unremarkable. Visualized IVC is unremarkable. IMPRESSION: Atherosclerosis of the aorta. No evidence or an aneurysm. POS: JAYSON
[2017-08-13 12:11] LABS: ALT (SGPT) 13 U/L (8-55); AST (SGOT) 15 U/L (5-34); Alkaline Phosphatase 58 U/L (40-150); Anion Gap 14 mmol/L (10-20); BUN (Urea Nitrogen) 11 mg/dL (9.8-20.1); Bilirubin, Total 0.7 mg/dL (0.2-1.2); CK (CPK) 63 U/L (29-168); Calc. Creatinine Clearance 0 mL/min (70-130); Calcium 8.4 mg/dL (7.8-10.44); Carbon Dioxide 23 mmol/L (23-31); Chloride 103 mmol/L (98-107); Estimated GFR-MDRD 71; Globulin 2.9 g/dL (2.4-3.5); Lipase 18 U/L (8-78); Protein, Total 5.9 g/dL (6.0-8.3); Troponin I Less than 0.010 ng/mL (< 0.028)
[2017-08-13 12:37] LABS: #Lymphocytes 0.9 thou/uL (1.20-3.40); #Monocytes 0.8 thou/uL (0.11-0.59); #Neutrophils 10.2 thou/uL (1.40-6.50); %Basophils 0.2 % (0.0-1.0); %Eosinophils 0.2 % (0.0-10.0); %Lymphocytes 7.8 % (21.0-51.0); %Monocytes 6.5 % (0.0-10.0); Hematocrit 35.5 % (36.0-47.0); Mean Platelet Volume 8.1 fL (7.4-10.4); Red Blood Cell (RBC) Count 3.84 mill/uL (4.20-5.40)
[2017-08-13 12:50] LABS: PTT 27.1 SEC (22.9-36.1); Prothrombin Time 13.9 SEC (12.0-14.7)
--- NOTE | 2017-08-13 12:54 | RAD ---
RADIOGRAPH CHEST 1 VIEW: Date: 08/13/17. Time: 11:52 a.m. HISTORY: An 81-year-old female with acute chest pain. COMPARISON: 07/11/17. FINDINGS: Again noted are the dual-led left subclavian pacemaker and the sternotomy wires. The previously dem onstrated left pleural effusion has decreased in volume, but there continues to be residual dense op acification of the base of the left lower lobe. The contralateral right lateral costophrenic angle is sharp, but it is noted on CTA of 07/12/17 and chest radiograph of 07/11/17, that the known right pl eural effusion is not visible on the frontal view radiograph. No pulmonary edema. No pneumothorax. IMPRESSION: 1. Interval decrease in volume of left pleural effusion. 2. Residual opacification of retrocardiac portion of left lower lobe probably represents a combinat ion of airspace density and residual small left pleural effusion. 3. Pacemaker. TASHA [] POS: JAYSON
[2017-08-13] MEDS ORDERED: Ondansetron HCl/PF 4 MG/2 ML Vial IVP PRN ×2 (15:12→18:36)
[2017-08-13] MEDS ORDERED: Ondansetron ODT 4 MG TAB SL PRN (15:12)
[2017-08-13] MEDS ORDERED: Sodium Chloride 0.9% 1,000 ML IV SCH (15:12)
[2017-08-13 15:17] VITALS: BMI 18.1
[2017-08-13 15:48] LABS: Troponin I Less than 0.010 ng/mL (< 0.028)
[2017-08-13] MEDS ORDERED: Acetaminophen 500 MG TAB PO PRN (18:36)
[2017-08-13] MEDS ORDERED: cloNIDine 0.1 MG TAB PO PRN (18:36)
[2017-08-13] MEDS ORDERED: Ondansetron ODT 4 MG TAB PO PRN (18:36)
[2017-08-13] MEDS: Famotidine 20 MG TAB PO SCH (19:56)
[2017-08-13] MEDS ORDERED: Donepezil HCl 5 MG TAB PO SCH (21:00)
[2017-08-14] MEDS ORDERED: Levothyroxine Sodium 50 MCG TAB PO SCH (06:00)
--- NOTE | 2017-08-14 06:02 | HP ---
DATE OF ADMISSION: 08/13/2017 PRIMARY CARE PROVIDER: Dr. Escudero. CHIEF COMPLAINT: Chest and back pain. HISTORY OF PRESENT ILLNESS: This is an 81-year-old female who presents to [facility] ency Department, complaining of chest pain since approximately 9:30 a.m. on 08/13/2017. Patient als o complained of some upper back and shoulder discomfort without jaw or left arm pain. The patient d enies any specific fever, chills, increased cough, congestion, or exposure history. Patient states she underwent evaluation due to concern for her pacemaker device, which was placed in 05/2017, for s ymptomatic bradycardia. Patient had complications post-implantation of the device with cardiac tamp onade, requiring median sternotomy with evacuation of approximately 300 mL of serosanguineous blood. Patient had repositioning of the atrial lead with normal functioning device postoperatively. Lakshmi ent apparently developed a left-sided pleural effusion, undergoing thoracentesis on 07/13/2017, with approximately 1 liter removed from the left hemithorax. Patient was set up with outpatient cardiop ulmonary rehabilitation, which patient states she has been undergoing over the last 1 to 2 weeks. P atient admits to increased-exercise routines with some soreness of her joints, shoulders, and back w ith exercise. Patient denies any specific trauma injury or recent falls. Patient did take antibiot ics after her discharge from [facility] on 07/15/2017, with Omnicef being pre scribed. Patient states she completed the prescription without the complication. In the emergency room, the patient underwent general evaluation including chest imaging, showing evidence of interval decrease in left-sided pleural effusion. Mild retrocardiac opacification was noted in the left low er lobe. Otherwise, no acute infiltrate was identified on chest imaging. Patient also underwent ev aluation of the aorta with ultrasound showing no evidence of aneurysm. Screening metabolic survey s howed no specific evidence of acute coronary syndrome with negative troponins x2. Patient received IV Zofran and fentanyl in the emergency room and was referred to the hospitalist service for evaluat ion. PAST MEDICAL HISTORY: 1. Symptomatic bradycardia, status post pacemaker placement. 2. Status post cardiac tamponade after pacemaker insertion with subsequent open sternotomy with chad cuation of pericardial fluid. 3. Left pleural effusion, status post thoracentesis on 07/13/2017. 4. Hypothyroidism. 5. Hyperlipidemia. 6. Gastroesophageal reflux disease. 7. History of intracranial hemorrhage. PAST SURGICAL HISTORY: 1. Status post right knee surgery. 2. Status post colonoscopy. 3. Status post left breast biopsy. 4. Status post cholecystectomy. 5. Status post pacemaker insertion. 6. Status post median sternotomy with evacuation of pericardial fluid. 7. Status post left thoracentesis. CURRENT MEDICATIONS: 1. Crestor 5 mg p.o. at bedtime. 2. Levothyroxine 50 mcg one tablet p.o. daily. 3. Tylenol 650 mg p.o. every 6 hours p.r.n. 4. Aricept 5 mg p.o. at bedtime. 5. Lexapro 10 mg p.o. daily. 6. Ranitidine 150 mg p.o. at bedtime. ALLERGIES: No known drug allergies. FAMILY HISTORY: No inheritable diseases per patient report. SOCIAL HISTORY: Patient resides in the [place] area with her daughter. Functional of all a ctivities of daily living. No current alcohol, tobacco, or illicit drug use. . REVIEW OF SYSTEMS: The following complete review of systems was negative, unless otherwise mentione d in the HPI or below: Constitutional: Weight loss or gain, ability to conduct usual activities. Skin: Rash, itching. Eyes: Double vision, pain. ENT/Mouth: Nose bleeding, neck stiffness, pain, tenderness. Cardiovascular: Palpitations, dyspnea on exertion, orthopnea. Respiratory: Shortness of breath, wheezing, cough, hemoptysis, fever or night sweats. Gastrointestinal: Poor appetite, abdominal pain, heartburn, nausea, vomiting, constipation, or diar remigio. Genitourinary: Urgency, frequency, dysuria, nocturia. Musculoskeletal: Pain, swelling. Neurologic/Psychiatric: Anxiety, depression. Allergy/Immunologic: Skin rash, bleeding tendency. Otherwise negative except as stated per HPI. PHYSICAL EXAMINATION: VITAL SIGNS: On admission, blood pressure 153/74, pulse is 84, respiratory rate is 14, temperature 98.3 degrees Fahrenheit, O2 saturation 95% on room air. GENERAL APPEARANCE: This is an 81-year-old female, appearing much younger than stated age. Alert a nd oriented x3, pleasant, in no acute distress. HEENT EXAM: Pupils are equal, round, and reactive to light and accommodation. Extraocular muscles are intact. No scleral icterus, no conjunctival injection. Nares patent. OP is clear. Teeth in g ood repair. NECK: Supple, no cervical adenopathy, no thyromegaly, no carotid bruits, no JVD appreciated. Cervi yo spine with full active and passive range of motion. CHEST: Lungs are clear to auscultation bilaterally. CARDIOVASCULAR EXAM: S1 and S2 with 1-2/6 systolic ejection murmur in the right upper sternal borde r. Mild tenderness to palpation in the anterior chest wall and the 3rd, 4th, and 5th rib distributi on on the left. Positive pacemaker device in the left upper chest wall with mild tenderness periphe rally. No erythema or fluctuance noted. ABDOMEN: Flat, soft, nontender, and nondistended. Bowel sounds are positive in all four quadrants. No hepatosplenomegaly, no abdominal bruits, no rebound or guarding appreciated. EXTREMITIES: Warm and dry with fair turgor. No clubbing, cyanosis, or asymmetric edema appreciated . Pulses palpable distally at the dorsalis pedis, posterior tibial, and popliteal arteries bilatera lly. Capillary refill is less than 2 seconds. NEUROLOGIC EXAM: Cranial nerves II through XII are grossly intact. No focal or lateralizing signs appreciated. PERTINENT LABORATORY DATA AND X-RAY FINDINGS: Basic metabolic profile within normal limits. Magnes ium 2.0. LFTs are within normal limits. Troponin I negative x2. BNP 166, previously noted 258 on 07/11/2017. Albumin 3.0. Lipase 18. CBC showed a white blood cell count of 12.0, hemoglobin of 11 , hematocrit 36, platelet count 244 with 85% neutrophils. PT 13.9, INR 1.1, PTT 27.1. Portable [facility] st x-ray dated on 08/13/2017, showed interval decrease in left pleural effusion size. Residual opac ification in the retrocardiac portion of the left lower lobe. Pacemaker device noted. Aortic ultra sound dated on 08/13/2017, showed no evidence of aneurysm. EKG dated on 08/13/2017, by my interpret ation shows A-paced rhythm in the 90s to low 100s. Attenuated R waves noted in the precordial leads . Left axis deviation. No acute ST-T wave changes appreciated. ASSESSMENT AND PLAN: 1. Chest pain. Appears noncardiac. Continue supportive management. Complete troponin I evaluatio n. Check fasting lipid profile in the a.m. Continue telemetry monitoring. 2. Symptomatic bradycardia, status post pacemaker placement. Stable currently. Pacemaker device a ppears with normal function. We will continue supportive management and monitor on the telemetry un it. 3. Hypothyroidism. Continue levothyroxine of 50 mcg p.o. daily. 4. Hyperlipidemia. Continue Crestor 5 mg p.o. at bedtime. 5. Left pleural effusion - status post thoracentesis. Residual decrease in overall left pleural ef fusion volume by chest imaging. Continue supportive management. 6. Prophylaxis. Sequential compression devices while in bed. Pepcid 20 mg p.o. b.i.d. 7. Code status is FULL. Surrogate medical decision maker is the patient's daughter.
[2017-08-14 06:14] LABS: Anion Gap 12 mmol/L (10-20); BUN (Urea Nitrogen) 11 mg/dL (9.8-20.1); Calc. Creatinine Clearance 48 mL/min (70-130); Calcium 8.9 mg/dL (7.8-10.44); Carbon Dioxide 25 mmol/L (23-31); Chloride 102 mmol/L (98-107); Cholesterol 188 mg/dl (< 200 Desired); Estimated GFR-MDRD 74; LDL Cholesterol, Calculated 103 mg/dL
[2017-08-14 08:04] VITALS: BP 129/74; TEMP 99.1
[2017-08-14] MEDS: Famotidine 20 MG TAB PO SCH (08:41)
[2017-08-14] MEDS ORDERED: Escitalopram Oxalate 10 mg Tablet PO SCH (09:00)
[2017-08-14 09:32] LABS: Hematocrit 43.4 % (36.0-47.0); Mean Platelet Volume 8.5 fL (7.4-10.4); Red Blood Cell (RBC) Count 4.75 mill/uL (4.20-5.40)
[2017-08-14 10:30] LABS: Band 4 % (5-11); Neutrophil 80 % (42-75)
--- NOTE | 2017-08-14 13:29 | DIS ---
DATE OF ADMISSION: 08/13/2017 DATE OF DISCHARGE: 08/14/2017 DISCHARGE DIAGNOSES: 1. Question of left lower lobe early pneumonia with associated effusion suspected secondary to Gram -positive cocci. 2. Febrile episode secondary to #1. 3. Chest pain secondary to #1. 4. History of symptomatic bradycardia, status post pacemaker placement. 5. Left pleural effusion, status post thoracentesis in 04/2017. CONSULTATIONS: None. PERTINENT LABORATORY AND X-RAY FINDINGS: Basic metabolic profile within normal limits. LFTs within normal limits. Troponin I negative x3. BNP 166, albumin 3.0, total cholesterol 188, triglycerides 59, HDL 73, LDL 103. Lipase 18. CBC showed a white blood cell count of 12.0, hemoglobin 11, hemat ocrit 36, platelet count 244 with 85% neutrophils. Portable chest x-ray dated 08/13/2017 showed int erval decrease and overall left pleural effusion volume. Residual opacification in the retrocardiac portion of the left lower lobe. Pacemaker device in place. Aortic ultrasound dated 08/13/2017 chris wed no evidence of aneurysm. HOSPITAL COURSE: Patient was observed on the telemetry unit after initially presenting with left-si ded chest and upper back pain. Patient was initially ruled out for cardiac etiology with negative t roponins x3. Chest imaging did reveal residual left-sided pleural effusion with associated leukocyt osis with a T-max of 100.9 degrees Fahrenheit. Suspicion for early pneumonia, given patient's clini yo presentation with recommendations to initiate antibiotic therapy with Levaquin 500 mg daily. Ov erall, the patient remained clinically stable throughout the hospital course with telemetry monitori ng showing sinus rhythm with intermittent atrial pacing. The patient clinically stable and ready fo r discharge on patient 08/14/2017. DISCHARGE MEDICATIONS: 1. Levaquin 500 mg 1 tab p.o. daily x7 days. 2. Aricept 5 mg 1 tablet p.o. at bedtime. 3. Lexapro 10 mg 1 tab p.o. daily. 4. Levothyroxine 75 mcg on Mondays and and 50 mcg on Saturday, Saturday, Saturday, and . 5. Ranitidine 150 mg p.o. at bedtime. 6. Crestor 5 mg p.o. at bedtime. 7. Guaifenesin/pseudoephedrine 600 mg/60 mg 1 tablet p.o. q.12 hours p.r.n. FOLLOWUP: Patient will follow up with her primary care provider, Dr. Taylor Escudero within 7 days of discharge. CONDITION ON DISCHARGE: Stable. ACTIVITY: Ad-sidney. DIET: Regular. SPECIAL INSTRUCTIONS: Recommend repeat chest imaging including PA and lateral views on first follow up visit with primary care provider. CODE STATUS: FULL. DISPOSITION: Home on 08/14/2017.
[2017-08-15] MEDS ORDERED: Levothyroxine Sodium 75 MCG TAB PO SCH (06:00)
== END 2017-08-14 11:03 | disposition home or self-care (01) ==
LOC: ERS 10:50 → 2SW 13:49
PROVIDERS: ADMIT Family Medicine; ATTEND Family Medicine
DX: R07.9 Chest pain, unspecified (principal); M54.89 Other dorsalgia; J90 Pleural effusion, not elsewhere classified; D72.829 Elevated white blood cell count, unspecified; R50.9 Fever, unspecified; R00.1 Bradycardia, unspecified; E03.9 Hypothyroidism, unspecified; E78.5 Hyperlipidemia, unspecified; K21.9 Gastro-esophageal reflux disease without esophagitis; Z79.899 Other long term (current) drug therapy; Z95.0 Presence of cardiac pacemaker; Z90.49 Acquired absence of other specified parts of digestive tract; Z98.890 Other specified postprocedural states
CPT/HCPCS: 71010; 76775; 80048; 80053; 80061; 82550; 82553; 83690; 83735; 83880; 84484 ×2; 85007; 85025; 85027; 85610; 85730; 93005; 94760 ×2; 96374; 99291; G0378; 36415; J3010

== ENCOUNTER 2017-08-22 13:05 | Outpatient (CLI) | payer MEDICARE, BC, OTHER ==
--- NOTE | 2017-08-22 14:34 | RAD ---
TWO VIEW CHEST SERIES: COMPARISON: 07/11/17. INDICATION: Dyspnea. FINDINGS: There is a moderate left effusion and mild right pleural effusion. Lungs are hyperinflated. There i s prominence of the cardiac silhouette. Left side cardiac pacing device is present. There is biapic al pleural irregularity. Evidence of prior sternotomy and scattered osseous degenerative change. IMPRESSION: Bilateral pleural fluid collections, left greater than right. Recommend continued followup to resolu tion. POS: C
== END 2017-08-22 13:06 | disposition home or self-care (01) ==
LOC: RAD 13:05
PROVIDERS: ATTEND Internal Medicine Critical Care Medicine
DX: R06.00 Dyspnea, unspecified (principal); J90 Pleural effusion, not elsewhere classified
CPT/HCPCS: 71020

== ENCOUNTER 2017-10-21 10:12 | Outpatient (CLI) | payer MEDICARE, BC, OTHER ==
--- NOTE | 2017-10-21 10:53 | RAD ---
2 VIEWS CHEST: Date: 10/21/17 COMPARISON: 08/22/17. HISTORY: Dyspnea. FINDINGS: Two views of the chest show normal sized cardiomediastinal silhouette. The pacemaker is unchanged in position. The patient is status post sternotomy. There is a small left pleural effusion. This has dec reased in size compared to the prior exam. The previously seen right pleural effusion has resolved. B iapical pleural thickening is seen. IMPRESSION: Small left pleural effusion. POS: ALFREDITO
== END 2017-10-21 10:13 | disposition home or self-care (01) ==
LOC: RAD 10:12
PROVIDERS: ATTEND Internal Medicine Critical Care Medicine
DX: R06.00 Dyspnea, unspecified (principal); J90 Pleural effusion, not elsewhere classified
CPT/HCPCS: 71046